=== PATIENT | male | born 1975 | race Caucasian/White ===

== ENCOUNTER 2017-01-05 20:01 | Emergency (ER) | payer SELFPAY ==
--- NOTE | 2017-01-05 20:32 | EDM.PDOC ---
ED HPI GENERAL MEDICAL PROBLEM - General Chief Complaint: General Stated Complaint: ELECTRIC SHOCK Time Seen by Provider: 01/05/17 20:30 Source of Information: Reports: Patient History Limitations: Reports: No Limitations - History of Present Illness INITIAL COMMENTS - FREE TEXT/NARRATIVE: HISTORY AND PHYSICAL: History of present illness: [Patient comes to the emergency room complaining of generalized aches and pains. 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 He states that the power saw he was using hit a power line 3 times causing him to be staffed with electricity. He did not fall or lose consciousness. He did not injure himself. He did not experience any complications at that time. Since then he's noticed a tight cramping feeling in his arms, abdomen and across his neck and back. No numbness or tingling. No pain in his wrist or lower legs. Denies pain to his hips and back and thighs. No fever chills no chest pain shortness of breath or difficulty breathing. He states that in the past he's been prescribed pain pills and would like some more today. States that he smokes marijuana for pain relief.] Review of systems: As per history of present illness and below otherwise all systems reviewed and negative. Past medical history: As per history of present illness and as reviewed below otherwise noncontributory. Surgical history: As per history of present illness and as reviewed below otherwise noncontributory. Social history: No reported history of drug or alcohol abuse. Family history: As per history of present illness and as reviewed below otherwise noncontributory. Physical exam: HEENT: Atraumatic, normocephalic. mucous membranes moist. neck supple, nontender , trachea midline. Lungs: Clear to auscultation, breath sounds equal bilaterally, chest nontender. Heart: S1S2, regular rate and rhythm. Abdomen: Soft, nondistended, nontender. Negative for masses guarding and rebound. Negative for costovertebral tenderness. Genitourinary: Deferred. Rectal: Deferred. Extremities: Atraumatic, ambulatory and without deformity. negative for cords or calf pain. Neurovascular unremarkable. Neuro: Awake, alert, oriented. Motor and sensory unremarkable throughout. Exam nonfocal. Diagnostics: [CBC, CMP, CPK, EKG] Impression: [Myalgias] Plan: [Discussed with patient that it is unlikely that he suffered any long-term muscle damage from the events that occurred last week. he would like to have labs and EKG completed today. Discussed with patient the findings are within normal limits and he did not suffer any significant muscle breakdown as a result of the electrocution. Recommend Tylenol and ibuprofen as well as muscle cream for sore areas. He verbalized understanding of our discussion.] Definitive disposition and diagnosis as appropriate pending reevaluation and review of above. generalized Pain Score (Numeric/FACES): 8 - Related Data Allergies Allergy/AdvReac Type Severity Reaction Status Date / Time No Known Allergies Allergy Verified 01/05/17 20:17 Home Meds: Home Meds Pain Medication 01/05/17 [History] ED ROS GENERAL - Review of Systems Review Of Systems: ROS reveals no pertinent complaints other than HPI. ED EXAM, GENERAL - Physical Exam Exam: See Below Course - Vital Signs Last Recorded V/S: Last Vital Signs Temp 98.8 F 01/05/17 20:19 Pulse 86 01/05/17 20:19 Resp 18 01/05/17 20:19 BP 132/86 01/05/17 20:19 Pulse Ox 98 01/05/17 20:19 - Orders/Labs/Meds Orders: Active Orders 24 hr Category Date Time Status EKG Documentation Completion [RC] STAT Care 01/05/17 20:54 Active Labs: Laboratory Tests 01/05/17 01/05/17 Range/Units 20:54 20:54 WBC 6.10 (4.0-11.0) K/uL RBC 4.98 (4.50-5.90) M/uL Hgb 15.6 (13.0-17.0) g/dL Hct 46.4 (38.0-50.0) % MCV 93.2 (80.0-98.0) fL MCH 31.3 (27.0-32.0) pg MCHC 33.6 (31.0-37.0) g/dL RDW Std Deviation 46.1 (28.0-62.0) fl RDW Coeff of Melanie 14 (11.0-15.0) % Plt Count 223 (150-400) K/uL MPV 9.90 (7.40-12.00) fL Neut % (Auto) 44.4 L (48.0-80.0) % Lymph % (Auto) 41.5 H (16.0-40.0) % [place] % (Auto) 7.7 (0.0-15.0) % Eos % (Auto) 6.1 (0.0-7.0) % Baso % (Auto) 0.3 (0.0-1.5) % Neut # (Auto) 2.7 (1.4-5.7) K/uL Lymph # (Auto) 2.5 H (0.6-2.4) K/uL [place] # (Auto) 0.5 (0.0-0.8) K/uL Eos # (Auto) 0.4 (0.0-0.7) K/uL Baso # (Auto) 0.0 (0.0-0.1) K/uL Nucleated RBC % 0.0 /100WBC Nucleated RBCs # 0 K/uL Sodium 141 (136-146) mmol/L Potassium 4.1 (3.5-5.1) mmol/L Chloride 105 (98-110) mmol/L Carbon Dioxide 26 (21-31) mmol/L BUN 15 (6.0-23.0) mg/dL Creatinine 1.0 (0.6-1.5) mg/dL Est Cr Clr Drug Dosing 91.81 mL/min Estimated GFR (MDRD) > 60.0 ml/min Glucose 76 (60-110) mg/dL Calcium 9.2 (8.8-10.8) mg/dL Total Bilirubin 0.6 (0.1-1.5) mg/dL AST 25 (5-40) IU/L ALT 28 (8-54) IU/L Alkaline Phosphatase 77 (40-150) Creatine Kinase 351 H (9-236) IU/L Total Protein 8.0 (6.0-8.0) g/dL Albumin 4.7 (3.5-5.0) g/dL Globulin 3.3 (2.0-3.5) g/dL Albumin/Globulin Ratio 1.4 (1.3-2.8) Departure - Departure Time of Disposition: 21:40 Disposition: Home, Self-Care 01 Condition: Good Clinical Impression: Myalgia - Discharge Information Instructions: Muscle Pain, Adult Referrals: PCP,None [Primary Care Provider] - Forms: ED Department Discharge Additional Instructions: The following information is given to patients seen in the emergency department who are being discharged to home. This information is to outline your options for follow-up care. We provide all patients seen in our emergency department with a follow-up referral. The need for follow-up, as well as the timing and circumstances, are variable depending upon the specifics of your emergency department visit. If you don't have a primary care physician on staff, we will provide you with a referral. We always advise you to contact your personal physician following an emergency department visit to inform them of the circumstance of the visit and for follow-up with them and/or the need for any referrals to a consulting specialist. The emergency department will also refer you to a specialist when appropriate. This referral assures that you have the opportunity for follow-up care with a specialist. All of these measure are taken in an effort to provide you with optimal care, which includes your follow-up. Under all circumstances we always encourage you to contact your private physician who remains a resource for coordinating your care. When calling for follow-up care, please make the office aware that this follow-up is from your recent emergency room visit. If for any reason you are refused follow-up, please contact the [facility] emergency department at and asked to speak to the emergency department charge nurse. [address] [address] Establish care with a provider at the clinic listed above. Tylenol or ibuprofen as needed for discomfort. Use muscle cream over sore muscle areas. Return to ER as needed as discussed. - My Orders Last 24 Hours: My Active Orders 01/05/17 20:54 EKG Documentation Completion [RC] STAT - Assessment/Plan Last 24 Hours: My Active Orders 01/05/17 20:54 EKG Documentation Completion [RC] STAT
[2017-01-05 21:34] LABS: CHLORIDE,CL 105 mmol/L (98-110); SODIUM,NA 141 mmol/L (136-146)
[2017-01-05 21:53] VITALS: BP 120/80
== END 2017-01-05 21:52 | disposition home or self-care (01) ==
LOC: MW.ED 20:01
DX: M79.1 Myalgia (principal)
CPT/HCPCS: 36415; 80053; 82550; 85025; 93005; 99282; 99283-25

== ENCOUNTER 2022-03-26 18:57 | Emergency (ER) | payer OTHER ==
[2022-03-26 20:18] VITALS: BP 135/82; PULSE 80
== END 2022-03-26 20:19 | disposition home or self-care (01) ==
LOC: MW.ED 18:57
DX: S89.91XA Unspecified injury of right lower leg, initial encounter (principal)
CPT/HCPCS: 73562-26-RT; 73562-RT; 99283

== ENCOUNTER 2025-03-22 11:46 | Emergency (ER) | payer SELFPAY ==
[2025-03-22 12:40] LABS: BASOPHILS ABSOLUTE AUTO 0.03 K/uL (0.00-0.20); BASOPHILS PERCENT AUTO 0.7 % (0.0-1.0); EOSINOPHILS ABSOLUTE AUTO 0.19 K/uL (0.00-0.45); EOSINOPHILS PERCENT AUTO 4.4 % (0.0-6.0); IMMATURE GRAN ABSOLUTE AUTO 0.01 K/uL (0.00-0.05); IMMATURE GRAN PERCENT AUTO 0.2 % (0.0-0.4); LYMPHOCYTES ABSOLUTE AUTO 1.64 K/uL (1.00-4.80); LYMPHOCYTES PERCENT AUTO 38.1 % (24.0-44.0); MEAN PLATELET VOLUME 9.8 fL (9.4-12.4); MONOCYTES ABSOLUTE AUTO 0.60 K/uL (0.00-0.80); MONOCYTES PERCENT AUTO 14.0 % (0.0-8.0); NEUTROPHILS ABSOLUTE AUTO 1.83 K/uL (1.80-7.70); NEUTROPHILS PERCENT AUTO 42.6 % (41.0-71.0); NRBC ABSOLUTE 0.00 K/uL (0.00-0.02); NRBC PERCENT 0.0 /100WBC (0.0-0.2); PLATELET COUNT,PLT 222 K/uL (150-400); RED BLOOD CELL COUNT 4.80 M/uL (4.52-5.90); WHITE BLOOD CELL COUNT,WBC 4.30 K/uL (3.9-11.3)
[2025-03-22 12:42] LABS: APPEARANCE,URINE CLEAR; GLUCOSE,URINE NEGATIVE (NEGATIVE); OCCULT BLOOD,URINE NEGATIVE (NEGATIVE)
[2025-03-22 13:02] LABS: A/G RATIO 1.1 (0.9-1.6); ALANINE AMINOTRANSFERASE,ALT 26.0 IU/L (14-63); ASPARTATE AMNIOTRANSFERASE,AST 18.0 IU/L (15-37); BILIRUBIN TOTAL 0.5 mg/dL (0.2-1.0); BLOOD UREA NITROGEN,BUN 17.0 mg/dL (7.0-18.0); CARBON DIOXIDE,CO2 31.6 mmol/L (21.0-32.0); CHLORIDE,CL 105.0 mmol/L (98-107); CREATININE 1.1 mg/dL (0.8-1.3); EST CRCL DRUG DOSING (CG) 76.78 mL/min; GLUCOSE RANDOM 97.0 mg/dL (74-106); POTASSIUM,K 4.4 mmol/L (3.5-5.1); PROTEIN TOTAL,TP 7.6 g/dL (6.4-8.2); SODIUM,NA 145.0 mmol/L (136-148)
[2025-03-22 13:04] LABS: ESTIMATED GFR 83.0 mL/min (>60)
[2025-03-22 13:24] VITALS: BP 138/93; PULSE 62
== END 2025-03-22 14:13 | disposition home or self-care (01) ==
LOC: MW.ED 11:46
DX: M79.642 Pain in left hand (principal); R10.9 Unspecified abdominal pain
CPT/HCPCS: 36415; 73140-26-F7; 73140-F7; 80053; 81003; 83690; 85025; 99283